=== PATIENT | male | born 1940 | race Caucasian/White ===

== ENCOUNTER 2021-08-23 06:42 | Outpatient (CLI) | payer MEDICARE, OTHER, SELFPAY ==
--- NOTE | 2021-08-23 06:47 | ECHOD_ITS ---
Reason For Study: CAD Procedure This was a 2D Doppler, Color Flow transthoracic echocardiogram. Exam performed in department. Left Ventricle Normal LV size. Left ventricular systolic function is normal. The estimated ejection fraction is 65 %. Stage 1 diastolic dysfunction. No regional wall motion abnormalities noted. Right Ventricle Normal RV size. Normal systolic function. Atria Normal left atrium. Normal right atrium. Mitral Valve There is mild to moderate mitral annular calcification. Mild (1+) mitral valve insufficiency. Tricuspid Valve Normal tricuspid valve. Mild (1+) tricuspid valve insufficiency. Pulmonary artery systolic pressure is 35 mmHg. Aortic Valve Trisinus/trileaflet aortic valve. Mild (1+) aortic valve insufficiency. Pulmonic Valve Normal pulmonic valve. Great Vessels Normal aortic root. The pulmonary artery is normal size. Normal inferior vena cava. Pericardium/Pleural No pericardial effusion. MMode/2D Measurements & Calculations LVIDd: 4.1 cm IVSd: 0.99 cm Ao root diam: 3.7 cm LVIDs: 2.8 cm LVPWd: 0.98 cm RVDd: 3.1 cm FS: 31.5 % LAV(MOD-bp): 46.2 ml LA A4 area: 16.8 cm2 LA dimension(2D): 3.7 cm LAV(MOD-bp) Indexed: 26.6 ml/m2 LAV(MOD-sp2): 46.5 ml LAV(MOD-sp4): 43.0 ml RA A4 area: 10.3 cm2 Doppler Measurements & Calculations MV E max jerry: 78.2 cm/sec Lat Peak E' Jerry: 7.9 cm/sec Med Peak E' Jerry: 7.4 cm/sec MV A max jerry: 104.6 cm/sec E/E' lat: 9.9 E/E' med: 10.6 MV E/A: 0.75 MV V2 max: 102.8 cm/sec Ao V2 max: 124.9 cm/sec AI max jerry: 407.9 cm/sec MV max P.2 mmHg Ao max P.2 mmHg AI max P.6 mmHg MV V2 mean: 66.8 cm/sec AI dec slope: 289.9 cm/sec2 MV mean P.9 mmHg AI P1/2t: 412.1 msec MV V2 VTI: 29.6 cm LV V1 max: 112.5 cm/sec PA V2 max: 97.2 cm/sec TR max jerry: 276.9 cm/sec LV V1 max P.1 mmHg TR max P.7 mmHg MV P1/2t-pr_phl: 117.9 msec ECHO/Echo Complete Interpretation Summary Normal LV size. Left ventricular systolic function is normal. The estimated ejection fraction is 65 %. There is mild to moderate mitral annular calcification. Mild (1+) mitral valve insufficiency. Mild (1+) aortic valve insufficiency. Stage 1 diastolic dysfunction. Ordering Physician: Arvin Manuel Referring Physician: RIVER CARLSON Performed By: Arelis Torres, GARETT, RVT
--- NOTE | 2021-08-23 13:04 | STRESSREP_ITS ---
Stress Test Report Exercise myocardial perfusion stress test. 81-year-old male for preoperative cardiac evaluation. Stress protocol: Resting EKG demonstrates normal sinus rhythm with a rate of 67 bpm normal intervals are noted resting blood pressure is 130/82 mmHg. Patient exercised according to regular [facility]choa protocol for total duration of 9 minutes. The ma ximum heart rate attained was 141 bpm which was 100% of max infected heart rate the maximum workload was 10.1 metabolic equivalents. At rest there were no ST or T wave changes noted suggest ischemia at peak exercise upsloping ST changes were noted with did not meet the criteria for ischemia no clinical angina was noted. The peak blood pressure was 163/66 mmHg. Myocardial perfusion protocol. 11.1 mCi of technetium 99m sestamibi was injected at rest. Patient exercised according to regular Ochoa protocol. At peak exercise 33.1 mCi of technetium 99m sestamibi was injected stress images were obtained stress and rest images were reconstructed and compared in the short axis vertical long horizontal long axis. Gated images were also obtained for Perfusion SPECT analysis: Review of the stress images demonstrate normal uptake of tracer noted in all areas of the myocardium. The rest images smooth demonstrate normal uptake of tracer noted in all areas of the myocardium. No areas of reversibility are noted suggest ischemia no previous infarct is noted. Gated SPECT analysis: The gated ejection fraction is 76%. Conclusion: Normal pharmacologic myocardial perfusion stress test. Preserved ejection fraction.
== END 2021-08-23 23:59 | disposition short-term general hospital (02) ==
LOC: CVS 06:46
PROVIDERS: PCP Nurse Practitioner Family; Referring Provider Internal Medicine Cardiovascular Disease; Visit Provider Internal Medicine Cardiovascular Disease
DX: Z01.810 Encounter for preprocedural cardiovascular examination (principal)
CPT/HCPCS: 78452; 93017; 93306; A9500; A4216

== ENCOUNTER → 2022-02-05 | Outpatient (CLI) | payer MEDICARE, OTHER, SELFPAY | END | disposition home or self-care (01) | LOC: LABSPEC 15:31 | PROVIDERS: PCP Nurse Practitioner Family; Visit Provider Otolaryngology Otolaryngology/Facial Plastic Surgery | DX: J34.89 Other specified disorders of nose and nasal sinuses (principal) | CPT/HCPCS: 87070; 87077; 87186; 87205 ==

== ENCOUNTER → 2022-06-27 | Outpatient (CLI) | payer MEDICARE, OTHER, SELFPAY ==
[2022-07-06 05:06] LABS: Beef 0.15 kU/L (Class 0/I); Carrot 0.14 kU/L (Class 0/I); Chicken 0.11 kU/L (Class 0/I); Egg, Whole 0.24 kU/L (Class 0/I); Onion 0.26 kU/L (Class 0/I); Pea <0.10 kU/L (Class 0); Rice <0.10 kU/L (Class 0); Salmon <0.10 kU/L (Class 0); Shrimp 0.15 kU/L (Class 0/I); Tomato 0.74 kU/L (Class II); Walnut, (Food) 0.11 kU/L (Class 0/I)
[2022-07-06 07:38] LABS: Milk (Cow) 0.55 kU/L (Class I); Peach 0.19 kU/L (Class 0/I)
== END | disposition home or self-care (01) ==
LOC: LAB 12:47
PROVIDERS: PCP Nurse Practitioner Family; Visit Provider Otolaryngology Otolaryngology/Facial Plastic Surgery
DX: T78.40XA Allergy, unspecified, initial encounter (principal)
CPT/HCPCS: 36415; 86003

== ENCOUNTER → 2024-05-03 | Outpatient (CLI) | payer MEDICARE, OTHER, SELFPAY ==
--- NOTE | 2024-05-03 13:25 | MRI_ITS ---
EXAM: MRA ABDOMEN WITHOUT AND WITH INTRAVENOUS CONTRAST CLINICAL INDICATION: CELIAC ARTERY STENOSIS TECHNIQUE: Multiplanar and multisequence MR images of the abdomen without and with intravenous contrast. 3-D reconstruction of the vascular system. CONTRAST: 11 cc of Clariscan IV. COMPARISON: No relevant prior studies available. FINDINGS: LOWER THORAX: Unremarkable. No pleural effusion. LIVER: Unremarkable. Normal morphology. No focal mass. GALLBLADDER AND BILE DUCTS: Unremarkable. No gallstones. No gallbladder distention or wall edema. No intra- or extrahepatic biliary ductal dilation. PANCREAS: Unremarkable. No focal cystic or solid mass. SPLEEN: Unremarkable. Normal size without focal cystic or solid mass. ADRENALS: Unremarkable. No nodules. KIDNEYS AND URETERS: Unremarkable. Normal renal size and position. No hydronephrosis. INTRAPERITONEAL SPACE: Unremarkable. No ascites or other fluid collection. No free air. VASCULATURE: Unremarkable. Abdominal aorta is non-dilated. Normal celiac artery, superior mesenteric artery, and bilateral renal arteries. LYMPH NODES: No enlarged lymph nodes. MRI/MRA Abdomen W/ or W/O Contrast IMPRESSION: No celiac artery stenosis. No significant vascular abnormality. Electronically Signed: Aly Buchanan MD at 7:05 EDT ,
== END | disposition home or self-care (01) ==
LOC: MRI 13:15
PROVIDERS: PCP Nurse Practitioner Family; Referring Provider Family Medicine; Visit Provider Family Medicine
DX: I77.1 Stricture of artery (principal)
CPT/HCPCS: 74185; A9575; A4216; C8902